=== PATIENT | male | born 1940 | race Caucasian/White ===

== ENCOUNTER 2021-01-26 20:13 | Observation (INO) | payer BC, MEDICARE, OTHER ==
[2021-01-26] MEDS ORDERED: Morphine 4 MG/ML VIAL ONE ×2 (21:30→22:35)
[2021-01-26] MEDS ORDERED: Ondansetron PF 4 MG/2 ML Vial ONE (21:30)
[2021-01-26] MEDS ORDERED: Boostrix 0.5 ML (Tdap) VIAL ONE (22:43)
[2021-01-26] MEDS ORDERED: Metoprolol Tartrate 5 MG/5 ML VIAL ONE (23:04)
[2021-01-26] MEDS ORDERED: Ketamine 50 MG/ML (10ML VIAL) ONE (23:17)
[2021-01-27] MEDS ORDERED: Ondansetron PF 4 MG/2 ML Vial IVP PRN (01:18)
[2021-01-27] MEDS ORDERED: Ondansetron ODT 4 MG TAB PO PRN (01:18)
[2021-01-27] MEDS ORDERED: Dextrose 50% Abboject 50 ML SYRINGE SLOW IVP PRN (01:18)
[2021-01-27] MEDS ORDERED: Acetaminophen 325 MG TAB PO PRN (01:18)
[2021-01-27] MEDS ORDERED: HYDROcodone/Acetaminophen 5/325 mg Tablet PO PRN (01:18)
[2021-01-27] MEDS ORDERED: Dextrose 5% in Water 1,000 ML IV PRN (01:18)
[2021-01-27 02:28] VITALS: BMI 35.2
[2021-01-27 04:39] LABS: SARS-CoV-2 PCR by NAA Not Detected (NotDetected)
[2021-01-27 04:56] LABS: #Eosinphils 0.1 thou/uL (0.0-0.7); #Lymphocytes 1.1 thou/uL (1.20-3.40); #Neutrophils 7.7 thou/uL (1.40-6.50); %Basophils 0.2 % (0.0-1.0); %Eosinophils 1.1 % (0.0-10.0); %Lymphocytes 10.7 % (21.0-51.0); %Monocytes 10.2 % (0.0-10.0); %Neutrophils 77.8 % (42.0-75.0); Mean Corpuscular HGB CONC 32.8 g/dL (32.0-36.0); Mean Corpuscular Hemoglobin 33.2 pg (27.0-31.0); Mean Platelet Volume 8.8 fL (7.4-10.4); Platelet Count 142 thou/uL (130-400); RBC Distribution Width 13.2 % (11.5-14.5); Red Blood Cell (RBC) Count 3.32 mill/uL (4.70-6.10); White Blood Cell (WBC) Count 9.9 thou/uL (4.8-10.8)
[2021-01-27 05:28] LABS: Anion Gap 10 mmol/L (10-20); BUN (Urea Nitrogen) 19 mg/dL (8.4-25.7); Calc. Creatinine Clearance 100 mL/min (70-130); Carbon Dioxide 26 mmol/L (23-31); Chloride 105 mmol/L (98-107); Glucose 278 mg/dL (83-110); Potassium 4.3 mmol/L (3.5-5.1); Sodium 137 mmol/L (136-145)
[2021-01-27] MEDS: HumaLOG 300 UNITS/3 ML VIAL SC PRN ×4 (06:15→21:56)
[2021-01-27] MEDS ORDERED: Enoxaparin Sodium 40 MG/0.4 ML SYRINGE SC SCH (09:00)
[2021-01-27] MEDS ORDERED: Metoprolol Tartrate 5 MG/5 ML VIAL IVP SCH (13:15)
[2021-01-27] MEDS: metFORMIN 500 MG TAB PO SCH (16:45)
[2021-01-27] MEDS: Furosemide 20 MG TAB PO SCH (20:33)
[2021-01-27] MEDS: Apixaban 5 MG TAB PO SCH (20:33)
[2021-01-27] MEDS: hydrALAZINE 25 MG TAB PO SCH (20:34)
[2021-01-27] MEDS: Metoprolol Tartrate 100 MG TAB PO SCH (20:34)
[2021-01-27] MEDS ORDERED: Non-Formulary Item 1 EACH (Hydralazine Hcl [Hydralazine Hcl] 50 MG Tablet) PO SCH (21:00)
[2021-01-27] MEDS ORDERED: Terazosin HCl 5 MG CAP PO SCH (21:00)
[2021-01-27] MEDS ORDERED: Non-Formulary Item 1 EACH (Metformin Hcl [Metformin Hcl] 1,000 MG Tablet) PO SCH (21:00)
[2021-01-27] MEDS ORDERED: TERAZOSIN HCL 10 MG PO SCH (21:00)
[2021-01-28 05:24] LABS: Hemoglobin 10.6 g/dL (14.0-18.0); Platelet Count 133 thou/uL (130-400)
[2021-01-28] MEDS: HumaLOG 300 UNITS/3 ML VIAL SC PRN (06:24)
[2021-01-28] MEDS ORDERED: Non-Formulary Item 1 EACH (Cyanocobalamin (Vitamin B-12) [Vitamin B12] 2,500 MCG Tablet) PO SCH (09:00)
[2021-01-28] MEDS ORDERED: Atorvastatin Calcium 40 MG TAB PO SCH (09:00)
[2021-01-28] MEDS ORDERED: Spironolactone 25 MG TAB PO SCH (09:00)
[2021-01-28] MEDS ORDERED: Losartan 25 MG TAB PO SCH (09:00)
[2021-01-28] MEDS ORDERED: Non-Formulary Item 1 EACH (Losartan Potassium [Cozaar] 100 MG Tablet) PO SCH (09:00)
[2021-01-28] MEDS ORDERED: Cyanocobalamin (Vitamin B-12) 1,000 MCG TAB PO SCH (09:00)
[2021-01-28] MEDS: metFORMIN 500 MG TAB PO SCH (09:04)
[2021-01-28] MEDS: hydrALAZINE 25 MG TAB PO SCH (09:05)
[2021-01-28] MEDS: Metoprolol Tartrate 100 MG TAB PO SCH (09:05)
[2021-01-28] MEDS: Furosemide 20 MG TAB PO SCH (09:05)
[2021-01-28] MEDS: Apixaban 5 MG TAB PO SCH (09:07)
[2021-01-28 11:31] VITALS: BP 119/67; TEMP 99.8
== END 2021-01-28 12:35 | disposition home or self-care (01) ==
LOC: ERS 20:13 → 2NO 23:53
PROVIDERS: ADMIT Student in an Organized Health Care Education/Training Program; ATTEND Internal Medicine
DX: S43.085A Other dislocation of left shoulder joint, initial encounter (principal); I48.20 Chronic atrial fibrillation, unspecified; I10 Essential (primary) hypertension; E78.5 Hyperlipidemia, unspecified; E11.42 Type 2 diabetes mellitus with diabetic polyneuropathy; E11.51 Type 2 diabetes mellitus with diabetic peripheral angiopathy without gangrene; E66.9 Obesity, unspecified; Z68.35 Body mass index [BMI] 35.0-35.9, adult; Z79.01 Long term (current) use of anticoagulants; Z79.84 Long term (current) use of oral hypoglycemic drugs; Z79.899 Other long term (current) drug therapy; Z20.822 Contact with and (suspected) exposure to COVID-19; W01.0XXA Fall on same level from slipping, tripping and stumbling without subsequent striking against object, initial encounter
CPT/HCPCS: 23650; 36415; 36416; 70450; 80048; 82565; 85014; 85018; 85025; 85049; 87635; 90471; 90715; 93005; 93306; 94760; 96374; 96375; 96376; G0378; J1815; J2270; J2405; U0003; U0005

== ENCOUNTER 2021-08-28 15:24 | Outpatient (CLI) | payer BC ==
[2021-08-28 17:10] LABS: Hemoglobin 11.5 g/dL (13.5-17.5); Mean Corpuscular HGB CONC 32.7 g/dL (32.0-36.0); Mean Corpuscular Hemoglobin 32.9 pg (27.0-33.0); Mean Corpuscular Volume 100.6 fl (81.2-95.1); Mean Platelet Volume 11.6 fl (7.4-10.4); Platelet Count 149 10x3/uL (150-450); RBC Distribution Width 13.8 % (11.5-14.5); White Blood Cell (WBC) Count 11.5 10x3/uL (3.5-10.5)
[2021-08-28 17:43] LABS: Anion Gap 15 mmol/L (10-20); BUN (Urea Nitrogen) 34 mg/dL (8.4-25.7); Calc. Creatinine Clearance 0 mL/min (70-130); Calcium 9.1 mg/dL (7.8-10.44); Carbon Dioxide 22 mmol/L (23-31); Chloride 108 mmol/L (98-107); Glucose 152 mg/dL (83-110); Potassium 4.6 mmol/L (3.5-5.1); Sodium 140 mmol/L (136-145)
[2021-08-29 15:33] LABS: SARS-CoV-2 PCR by NAA Not Detected (NotDetected)
== END 2021-08-28 15:25 | disposition home or self-care (01) ==
LOC: LABBT 15:24
PROVIDERS: ATTEND Urology
DX: Z01.812 Encounter for preprocedural laboratory examination (principal); N40.1 Benign prostatic hyperplasia with lower urinary tract symptoms; R33.8 Other retention of urine; Z20.822 Contact with and (suspected) exposure to COVID-19
CPT/HCPCS: 80048; 85027; U0003; U0005

== ENCOUNTER 2021-09-02 06:18 | Observation (INO) | payer BC, MEDICARE ==
[2021-09-01 12:08] VITALS: BMI 33.1
[2021-09-02] MEDS ORDERED: Levofloxacin 500 mg/D5W 100 ml Premix Bag ONE (07:12)
[2021-09-02] MEDS ORDERED: Fentanyl 100 MCG/2 ML VIAL ONE ×2 (08:20→08:21)
[2021-09-02] MEDS ORDERED: Ondansetron PF 4 MG/2 ML Vial ONE (08:34)
[2021-09-02] MEDS ORDERED: PROPOFOL 200 MG/20 ML VIAL ONE (08:34)
[2021-09-02] MEDS ORDERED: Lidocaine 1% PF 5 ML VIAL ONE (08:34)
[2021-09-02] MEDS ORDERED: ePHEDrine 50 MG/ML VIAL ONE (08:34)
[2021-09-02] MEDS ORDERED: PHENYLEPHRINE-NS 100 MCG/ML 10 ML SYRINGE ONE ×2 (08:34→09:39)
[2021-09-02] MEDS ORDERED: Promethazine HCl 25 MG/ML VIAL IM PRN (10:31)
[2021-09-02] MEDS ORDERED: Meperidine HCl/PF 25 MG/ML VIAL SLOW IVP PRN (10:31)
[2021-09-02] MEDS ORDERED: Ondansetron HCl/PF 4 MG/2 ML Vial IVP PRN (10:31)
[2021-09-02] MEDS ORDERED: Promethazine HCl 25 MG/ML VIAL IVPB PRN (10:31)
[2021-09-02] MEDS ORDERED: diphenhydrAMINE 50 MG/ML VIAL IVP PRN (11:10)
[2021-09-02] MEDS ORDERED: Hyoscyamine Sulfate SL 0.125 mg Tablet SL PRN (11:10)
[2021-09-02] MEDS ORDERED: hydrALAZINE 20 MG/ML VIAL SLOW IVP PRN (11:10)
[2021-09-02] MEDS ORDERED: Zolpidem Tartrate 5 MG TAB PO PRN (11:10)
[2021-09-02] MEDS ORDERED: HYDROcodone/Acetaminophen 5/325 mg Tablet PO PRN (11:10)
[2021-09-02] MEDS ORDERED: Ketorolac Tromethamine 30 MG/ML VIAL IVP PRN (11:10)
[2021-09-02] MEDS ORDERED: Ondansetron PF 4 MG/2 ML Vial IVP PRN (11:10)
[2021-09-02] MEDS: Oxybutynin 5 MG TAB PO SCH ×2 (15:19→20:52)
[2021-09-02] MEDS: metFORMIN 500 MG TAB PO SCH (17:59)
[2021-09-02] MEDS ORDERED: FLU VACC QS2021-22(65YR UP)/PF 240 MCG/0.7 ML SYRINGE IM ONE (18:00)
[2021-09-02] MEDS: Sodium Chloride 0.9% 1,000 ML IV SCH ×2 (18:31→20:53)
[2021-09-02] MEDS: Docusate 100 MG CAP PO SCH (20:52)
[2021-09-02] MEDS: Metoprolol Tartrate 100 MG TAB PO SCH (20:52)
[2021-09-02] MEDS: Famotidine/PF 20 mg/2ml Vial SLOW IVP SCH (20:53)
[2021-09-02] MEDS ORDERED: Terazosin HCl 5 MG CAP PO SCH (21:00)
[2021-09-03] MEDS: Oxybutynin 5 MG TAB PO SCH ×2 (05:46→14:46)
[2021-09-03] MEDS: Sodium Chloride 0.9% 1,000 ML IV SCH (05:48)
[2021-09-03] MEDS ORDERED: Spironolactone 25 MG TAB PO SCH (08:00)
[2021-09-03] MEDS ORDERED: Cyanocobalamin (Vitamin B-12) 1,000 MCG TAB PO SCH (09:00)
[2021-09-03] MEDS ORDERED: Furosemide 20 MG TAB PO SCH (09:00)
[2021-09-03] MEDS ORDERED: Atorvastatin Calcium 40 MG TAB PO SCH (09:00)
[2021-09-03] MEDS ORDERED: Losartan 25 MG TAB PO SCH (09:00)
[2021-09-03] MEDS: Famotidine/PF 20 mg/2ml Vial SLOW IVP SCH (09:13)
[2021-09-03] MEDS: Docusate 100 MG CAP PO SCH (09:14)
[2021-09-03] MEDS: Metoprolol Tartrate 100 MG TAB PO SCH (09:14)
[2021-09-03] MEDS: metFORMIN 500 MG TAB PO SCH (09:14)
[2021-09-03 15:56] VITALS: BP 96/63; TEMP 98.2
== END 2021-09-03 17:13 | disposition home or self-care (01) ==
LOC: SDC 06:18 → SURG A 11:10
PROVIDERS: ADMIT Urology; ATTEND Urology
PROC: 0VT08ZZ Resection of Prostate, Via Natural or Artificial Opening Endoscopic (ICD-10-PCS; principal; 2021-09-02)
DX: C61 Malignant neoplasm of prostate (principal); N32.89 Other specified disorders of bladder; R33.8 Other retention of urine; I10 Essential (primary) hypertension; E78.5 Hyperlipidemia, unspecified; E11.9 Type 2 diabetes mellitus without complications; G47.33 Obstructive sleep apnea (adult) (pediatric); I48.91 Unspecified atrial fibrillation; Z98.890 Other specified postprocedural states; Z96.651 Presence of right artificial knee joint; Z87.891 Personal history of nicotine dependence; Z98.1 Arthrodesis status; Z79.84 Long term (current) use of oral hypoglycemic drugs; Z79.01 Long term (current) use of anticoagulants; Z79.899 Other long term (current) drug therapy
CPT/HCPCS: 36416; 88305; 96374; 96376; G0378; J1956; J2405; J2704; J3010; J3490; J7050; S0028

== ENCOUNTER 2022-11-19 12:24 | Outpatient (CLI) | payer MEDICARE | END 2022-11-19 12:25 | disposition home or self-care (01) | LOC: BICCT 12:24 | PROVIDERS: ATTEND Urology | DX: C61 Malignant neoplasm of prostate (principal); N40.1 Benign prostatic hyperplasia with lower urinary tract symptoms; R31.0 Gross hematuria; I71.43 Infrarenal abdominal aortic aneurysm, without rupture; I72.3 Aneurysm of iliac artery; Q61.02 Congenital multiple renal cysts; N40.0 Benign prostatic hyperplasia without lower urinary tract symptoms; K76.89 Other specified diseases of liver; D35.01 Benign neoplasm of right adrenal gland; K44.9 Diaphragmatic hernia without obstruction or gangrene; I51.7 Cardiomegaly; Z90.79 Acquired absence of other genital organ(s) | CPT/HCPCS: 74178; 82565 ==

== ENCOUNTER 2024-03-08 09:34 | Outpatient (CLI) | payer MEDICARE ==
[2024-03-08] MEDS ORDERED: Magnevist 469MG/ML 20 ML VIAL ONE ×2 (11:15)
== END 2024-03-08 09:35 | disposition home or self-care (01) ==
LOC: BICMRI 09:34
PROVIDERS: ATTEND Family Medicine
DX: R53.1 Weakness (principal); I66.01 Occlusion and stenosis of right middle cerebral artery; R90.82 White matter disease, unspecified
CPT/HCPCS: 70544; 70549; 70553; A9579